=== PATIENT | female | born 1995 | race Caucasian/White ===

== ENCOUNTER 2019-11-19 08:51 | Emergency (ER) | payer OTHER ==
[~2019-11-19] VITALS: Ht 167.6 cm; Wt 81.0 kg
--- NOTE | 2019-11-19 09:14 | NUR ---
PATIENT WALKED BACK FROM TRIAGE WITH CHIEF C/O LOWER ABDOMINAL CRAMPING THAT STARTED ABOUT 0800 THIS MORNING, CAME ON SUDDENLY, NO BLEEDING NOTED. PATIENT STATES SHE HAD MIRENA IUD PLACED 2 MONTHS AGO, WITHOUT ANY DIFFICULTY. PATIENT REPORTS THAT SHE WAS UNABLE TO STAND THIS MORNING DUE TO THE CRAMPING, WITH PAIN LEVEL OF 10/10. RIGHT NOW PAIN LEVEL IS 3/10, PATIENT CONNECTED TO VITAL SIGN MACHINE, CALL LIGHT WITHIN REACH, NO SIGNS OF ACUTE DISTRESS.
--- NOTE | 2019-11-19 09:32 | NUR ---
PROVIDER AT BEDSIDE FOR EVALUATION.
[2019-11-19 09:51] LABS: BASOPHILS # (AUTO) 0.02 x10^3/uL (0-0.1); BASOPHILS % (AUTO) 0 % (0-1); EOSINOPHILS # (AUTO) 0.13 x10^3/uL (0-0.4); EOSINOPHILS % (AUTO) 2 % (1-7); LYMPHOCYTES # (AUTO) 1.33 x10^3/uL (1-3.4); LYMPHOCYTES % (AUTO) 23 % (22-44); MD NO; MEAN CORPUSCULAR HEMOGLOBIN 30.4 pg (27.0-34.8); MEAN CORPUSCULAR HGB CONC 33.9 g/dL (32.4-35.8); MEAN PLATELET VOLUME 8.3 fL (7.4-10.4); MONOCYTES # (AUTO) 0.39 x10^3/uL (0.2-0.8); MONOCYTES % (AUTO) 7 % (2-9); NEUTROPHILS % (AUTO) 68 % (42-75); PLATELET COUNT 252 x10^3/uL (130-400); RED BLOOD COUNT 4.21 x10^6/uL (3.82-5.3); RED CELL DISTRIBUTION WIDTH 13.2 % (9.6-15.2)
--- NOTE | 2019-11-19 09:55 | NUR ---
PATIENT AMBULATED TO BATHROOM FOR URINE SAMPLE.
--- NOTE | 2019-11-19 10:00 | NUR ---
URINE COLLECTED AND SENT TO LAB, PATIENT TO ULTRASOUND.
[2019-11-19 10:03] LABS: ALBUMIN 3.3 g/dL (3.4-5.0); ANION GAP 6 mmol/L (5-15); CALCIUM 8.4 mg/dL (8.5-10.1); CHLORIDE 109 mmol/L (98-107); CREATININE 0.79 mg/dL (0.55-1.02)
[2019-11-19 10:33] LABS: MICROSCOPIC AUTO
--- NOTE | 2019-11-19 10:58 | NUR ---
Vickie Choi CAREER SERVICES DIRECTOR AT BEDSIDE TO DISCUSS POC
--- NOTE | 2019-11-19 11:58 | NUR ---
Evita lovett in [facility] - 11/19/19 at [email or web address] SCAN.
--- NOTE | 2019-11-19 12:03 | NUR ---
PATIENT AMBULATED TO BATHROOM AND BACK TO [facility], NO SIGNS OF ACUTE DISTRESS, CALL LIGHT WITHIN REACH.
--- NOTE | 2019-11-19 12:40 | NUR ---
20 GAUGE IV STARTED RAC, PATIENT RESTING IN [facility], CALL LIGHT WITHIN REACH, NO FURTHER NEEDS AT THIS TIME.
--- NOTE | 2019-11-19 13:01 | NUR ---
PT TO IMAGING
[2019-11-19] MEDS ORDERED: OMNIPAQUE 350 MG/ML, 100ML BOTTLE ONE (13:17)
--- NOTE | 2019-11-19 13:35 | NUR ---
joyce whatley spoke with dr grajeda
--- NOTE | 2019-11-19 13:45 | NUR ---
GERSON ROJAS AT BEDSIDE TO DISCUSS POC
[2019-11-19 13:49] VITALS: BP 133/79
== END 2019-11-19 13:59 | disposition home or self-care (01) ==
LOC: ED 12:11
DX: N83.291 Other ovarian cyst, right side (principal); R10.31 Right lower quadrant pain
CPT/HCPCS: 36415; 74177; 76830; 80048; 81001; 82040; 84702; 85025; 87086; 99285; Q9967